=== PATIENT | female | born 2000 | race Caucasian/White ===

== ENCOUNTER 2021-06-14 16:30 | Emergency (ER) | payer SELFPAY ==
[~2021-06-14] VITALS: Ht 154.9 cm; Wt 50.0 kg
[2021-06-14 16:31] VITALS: BP 98/67
== END 2021-06-15 00:03 | disposition left against medical advice (07) ==
LOC: M ED 16:30
DX: Z53.21 Procedure and treatment not carried out due to patient leaving prior to being seen by health care provider (principal)

== ENCOUNTER → 2021-07-23 | Outpatient (REF) | payer OTHER ==
[~2021-07-23] MED LIST: MACR100C43 PO
[2021-07-23 18:29] LABS: HEMATOCRIT 36.3 % (36.0-47.0); HEMOGLOBIN 12.1 g/dl (12.0-15.5); MEAN CORPUSCULAR HEMOGLOBIN 30.1 pg (27.0-33.0); MEAN CORPUSCULAR HGB CONC 33.3 g/dl (32.0-36.5); MEAN CORPUSCULAR VOLUME 90.3 fl (80.0-96.0); PLATELET COUNT, AUTOMATED 313 10^3/uL (150-450); RED BLOOD COUNT 4.02 10^6/uL (4.00-5.40); WHITE BLOOD COUNT 10.8 10^3/uL (4.0-10.0)
[2021-07-23 19:50] LABS: HCG, SERUM QUANTITATIVE 40368 MIU/ML; HEPATITIS B SURFACE ANTIGEN NEGATIVE (NEGATIVE); HEPATITIS C VIRUS ABY INDEX < 0.0 INDEX (<0.8); HIV 1&2 SCREEN CENTAUR NEGATIVE (NEGATIVE)
== END ==
LOC: M LAB REF 17:39
PROVIDERS: ATTEND Obstetrics & Gynecology
DX: Z32.01 Encounter for pregnancy test, result positive (principal); O36.80X0 Pregnancy with inconclusive fetal viability, not applicable or unspecified; Z3A.00 Weeks of gestation of pregnancy not specified

== ENCOUNTER 2021-10-10 19:06 | Outpatient (CLI) | payer OTHER ==
[~2021-10-10] VITALS: Ht 152.4 cm; Wt 57.0 kg
[2021-10-10 19:46] VITALS: BP 103/60
[2021-10-10 20:41] LABS: AMORPHOUS SEDIMENT SMALL (NEGATIVE); APPEARANCE, URINE CLOUDY (CLEAR); BACTERIA, URINE AUTO NEGATIVE (NEGATIVE); BILIRUBIN, URINE AUTO NEGATIVE (NEGATIVE); BLOOD, URINE BLOOD NEGATIVE (NEGATIVE); COLOR, URINE YELLOW (YELLOW); GLUCOSE, URINE (UA) AUTO NEGATIVE (NEGATIVE); KETONE, URINE AUTO NEGATIVE (NEGATIVE); LEUKOCYTE ESTERASE, URINE AUTO 2+ (NEGATIVE); NITRITE, URINE AUTO NEGATIVE (NEGATIVE); PROTEIN, URINE AUTO NEGATIVE (NEGATIVE); RBC, URINE AUTO 3 /HPF (0-3); SQUAMOUS EPITHELIAL CELL UR AU 14 /HPF (0-6); WBC, URINE AUTO 53 /HPF (0-3)
--- NOTE | 2021-10-10 20:51 | IPNPDOC ---
Text Note Date of Service The patient was seen on 10/10/21. NOTE S: 21 yo at 23 5/7 weeks gestation presents with cramping, and urinary urgency. She has had multiple UTI's in the past. She feels this is a UTI. Pt of [facility]. She had contractions with her first due to UTI. O: AVSS NAD Abd: NT, gravid, soft FHT: + toco: none ext: NT UA: 53 WBC A/P 21 yo at 23 5/7 weeks with cramping, urgency, possible UTI Start Macrobid Send urine for culture discharge home [facility] VS,Fishbone, I+O VS, Fishbone, I+O Vital Signs Date Time Temp Pulse Resp B/P (MAP) Pulse Ox O2 Delivery O2 Flow Rate FiO2 10/10/21 19:46 98.6 78 18 103/60 (74) DOMENICO HODGSON MD Oct 10, 2021 20:51
[2021-10-10] MEDS ORDERED: NITROFURANTOIN (MACROBID) 100 MG CAP PO ONE (21:00)
[2021-10-10] MEDS ORDERED: MACR100C43 PO (21:01)
== END 2021-10-10 21:12 | disposition home or self-care (01) ==
LOC: M LDO 19:06
PROVIDERS: ATTEND Specialist
DX: O26.892 Other specified pregnancy related conditions, second trimester (principal); R25.2 Cramp and spasm; Z3A.23 23 weeks gestation of pregnancy
CPT/HCPCS: 59025; 81001; 87086; G0378; G0463

== ENCOUNTER → 2021-11-06 | Outpatient (CLI) | payer OTHER | LOC: M LAB 11:10 | PROVIDERS: ATTEND Advanced Practice Midwife | DX: Z34.82 Encounter for supervision of other normal pregnancy, second trimester (principal); Z3A.00 Weeks of gestation of pregnancy not specified ==

== ENCOUNTER → 2022-01-09 | Outpatient (REF) | payer OTHER | LOC: M LAB REF 12:02 | PROVIDERS: ATTEND Obstetrics & Gynecology | DX: Z34.83 Encounter for supervision of other normal pregnancy, third trimester (principal); Z3A.00 Weeks of gestation of pregnancy not specified ==

== ENCOUNTER 2022-01-21 13:46 | Outpatient (CLI) | payer OTHER ==
[~2022-01-21] VITALS: Ht 154.9 cm; Wt 61.9 kg
[2022-01-21] MEDS ORDERED: TUMS750C5 PO (14:13)
[2022-01-21 14:16] VITALS: BP 98/60
[2022-01-21 14:50] VITALS: BP 102/57
[2022-01-21 16:04] VITALS: BP 104/64
== END 2022-01-21 16:10 | disposition home or self-care (01) ==
LOC: M LDO 13:46
PROVIDERS: ATTEND Obstetrics & Gynecology
DX: O26.853 Spotting complicating pregnancy, third trimester (principal); O60.03 Preterm labor without delivery, third trimester; Z3A.38 38 weeks gestation of pregnancy
CPT/HCPCS: 59025; G0378; G0463

== ENCOUNTER → 2022-11-06 | Outpatient (REF) | payer OTHER ==
[~2022-11-06] MED LIST changes: +TUMS750C5 PO
== END ==
LOC: M LAB REF 21:33
PROVIDERS: ATTEND Physician Assistant
DX: J06.9 Acute upper respiratory infection, unspecified (principal); Z20.828 Contact with and (suspected) exposure to other viral communicable diseases

== ENCOUNTER 2022-12-21 02:21 | Emergency (ER) | payer OTHER ==
[~2022-12-21] VITALS: Ht 154.9 cm; Wt 51.4 kg
[2022-12-21 02:22] VITALS: BP 114/77
[2022-12-21] MEDS ORDERED: ONDA4TAB6 PO (20:29)
== END 2022-12-21 03:57 | disposition left against medical advice (07) ==
LOC: M ED 02:21
DX: Z53.21 Procedure and treatment not carried out due to patient leaving prior to being seen by health care provider (principal)

== ENCOUNTER 2022-12-21 14:16 | Emergency (ER) | payer OTHER ==
[~2022-12-21] VITALS: Ht 154.9 cm; Wt 50.0 kg
[2022-12-21] MEDS ORDERED: NS 1,000 ML IV ONE ×2 (14:45→15:05)
[2022-12-21] MEDS ORDERED: MORPHINE 2 MG/ML 1ML VIAL IV ONE ×2 (14:45→19:20)
[2022-12-21] MEDS ORDERED: PROMETHAZINE 25MG/ML 1ML VIAL IV ONE (14:45)
[2022-12-21 15:11] LABS: BASO % 0.3 % (0.0-1.0); HEMATOCRIT 41.6 % (36.0-47.0); HEMOGLOBIN 14.2 g/dl (12.0-15.5); LYMPH # 1.7 10^3/uL (1.5-5.0); LYMPH % 11.3 % (24.0-44.0); MEAN CORPUSCULAR HEMOGLOBIN 29.3 pg (27.0-33.0); MEAN CORPUSCULAR HGB CONC 34.1 g/dl (32.0-36.5); MONO % 12.7 % (2.0-8.0); NEUTROPHILS % 75.2 % (36.0-66.0); PLATELET COUNT, AUTOMATED 329 10^3/uL (150-450); RED BLOOD COUNT 4.84 10^6/uL (4.00-5.40); WHITE BLOOD COUNT 14.7 10^3/uL (4.0-10.0)
[2022-12-21] MEDS ORDERED: GI COCKTAIL 50ML BTL(HYOSCYAMINE/MAALOX/LIDOCAINE VISCOUS)(1:3:1) PO ONE (15:20)
[2022-12-21 15:31] LABS: LIPASE 26 U/L (12-53)
[2022-12-21 15:32] LABS: MONO # 1.9 10^3/uL (0.0-0.8)
[2022-12-21 15:33] LABS: ALBUMIN 4.7 G/DL (3.2-5.2); ALKALINE PHOSPHATASE 96 U/L (46-116); ALT/SGPT 19 U/L (7.0-40); AST/SGOT 20 U/L (<34); BILIRUBIN,DIRECT 0.2 MG/DL (<0.4); BILIRUBIN,TOTAL 0.6 MG/DL (0.3-1.2); TOTAL PROTEIN 8.5 G/DL (5.7-8.2)
[2022-12-21 15:57] LABS: RSV AMPLIFICATION NEGATIVE (NEGATIVE)
[2022-12-21] MEDS ORDERED: KETOROLAC 30 MG/ML 1ML VIAL IV ONE (16:30)
[2022-12-21 16:34] LABS: BLOOD UREA NITROGEN 18 MG/DL (9-23); CALCIUM LEVEL 9.8 MG/DL (8.5-10.1); CARBON DIOXIDE LEVEL 14 MMOL/L (20-31); CHLORIDE LEVEL 101 MMOL/L (98-107); CREATININE FOR GFR 0.74 MG/DL (0.55-1.30); GLOMERULAR FILTRATION RATE > 60.0 (>60); GLUCOSE, FASTING 88 MG/DL (60-100); SODIUM LEVEL 136 MMOL/L (136-145)
[2022-12-21] MEDS ORDERED: ISOVUE-370 76% 100ML VIAL As Ordered ONE (17:01)
[2022-12-21] MEDS ORDERED: ONDANSETRON 4MG ORAL DISINTEGRATING TAB PO ONE ×3 (19:10→20:35)
[2022-12-21] MEDS ORDERED: NS 1,000 ML IV SCH (19:20)
[2022-12-21] MEDS ORDERED: HOME MED LIST COMPLETE! XX SCH (19:55)
[2022-12-21] MEDS ORDERED: ONDA4TAB6 PO (20:29)
[2022-12-21 20:32] VITALS: BP 97/58
== END 2022-12-21 20:46 | disposition home or self-care (01) ==
LOC: M ED 14:16
DX: R10.9 Unspecified abdominal pain (principal); R11.2 Nausea with vomiting, unspecified; Z88.0 Allergy status to penicillin; Z79.810 Long term (current) use of selective estrogen receptor modulators (SERMs); Z79.899 Other long term (current) drug therapy
CPT/HCPCS: 74177; 76705; 80047; 80048; 80076; 81000; 81015; 83690; 84702; 85025; 87631; 93041; 96361; 96374; 96375; 99284; J1885; J2270; J2550

== ENCOUNTER 2022-12-23 03:12 | Emergency (ER) | payer OTHER ==
[~2022-12-23] VITALS: Ht 154.9 cm; Wt 50.0 kg
[~2022-12-23 03:12] MED LIST changes: +ONDA4TAB6 PO
[2022-12-23 04:54] LABS: HEMATOCRIT 36.9 % (36.0-47.0); HEMOGLOBIN 12.5 g/dl (12.0-15.5); MEAN CORPUSCULAR HEMOGLOBIN 29.2 pg (27.0-33.0); MEAN CORPUSCULAR HGB CONC 33.9 g/dl (32.0-36.5); MEAN CORPUSCULAR VOLUME 86.2 fl (80.0-96.0); PLATELET COUNT, AUTOMATED 337 10^3/uL (150-450); RED BLOOD COUNT 4.28 10^6/uL (4.00-5.40)
[2022-12-23 05:06] LABS: HCG, SERUM QUALITATIVE NEGATIVE (NEGATIVE)
[2022-12-23 05:09] LABS: ALBUMIN 3.9 G/DL (3.2-5.2); ALKALINE PHOSPHATASE 81 U/L (46-116); ALT/SGPT 19 U/L (7.0-40); AST/SGOT 17 U/L (<34); BILIRUBIN,DIRECT 0.3 MG/DL (<0.4); BILIRUBIN,TOTAL 0.6 MG/DL (0.3-1.2); BLOOD UREA NITROGEN 12 MG/DL (9-23); CALCIUM LEVEL 9.2 MG/DL (8.5-10.1); CARBON DIOXIDE LEVEL 18 MMOL/L (20-31); CHLORIDE LEVEL 103 MMOL/L (98-107); CREATININE FOR GFR 0.59 MG/DL (0.55-1.30); GLOMERULAR FILTRATION RATE > 60.0 (>60); GLUCOSE, FASTING 86 MG/DL (60-100); POTASSIUM SERUM 3.7 MMOL/L (3.5-5.1); SODIUM LEVEL 137 MMOL/L (136-145); TOTAL PROTEIN 7.9 G/DL (5.7-8.2)
[2022-12-23 05:31] LABS: ATYPICAL LYMPH 8 % (0-5); BASOPHILS 1 % (0-1); EOSINOPHILS 2 % (0-3); LYMPHOCYTES 25 % (16-44); MONOCYTES 9 % (0-5); MYELOCYTES 1 % (0-0); NEUTROPHILS 54 % (28-66); PLATELET ESTIMATE NORMAL (NORMAL)
[2022-12-23] MEDS ORDERED: KETOROLAC 60MG 2ML VIAL IM ONE (06:15)
[2022-12-23] MEDS ORDERED: ONDANSETRON 4MG TAB PO ONE (06:15)
[2022-12-23] MEDS ORDERED: ALPRAZolam 0.5 MG TAB PO ONE (06:15)
[2022-12-23] MEDS ORDERED: PRIL20TA2 PO (07:17)
[2022-12-23 08:01] VITALS: BP 121/71
== END 2022-12-23 08:21 | disposition home or self-care (01) ==
LOC: M ED 03:12
DX: R10.9 Unspecified abdominal pain (principal); R11.2 Nausea with vomiting, unspecified; F41.9 Anxiety disorder, unspecified; D64.9 Anemia, unspecified; Z88.0 Allergy status to penicillin; Z79.899 Other long term (current) drug therapy
CPT/HCPCS: 36415; 80048; 80076; 83605; 84703; 85025; 96372; 99283; J1885

== ENCOUNTER → 2022-12-25 | Outpatient (REF) | payer OTHER ==
[~2022-12-25] MED LIST changes: +PRIL20TA2 PO
[2022-12-25 17:35] LABS: HEMATOCRIT 36.3 % (36.0-47.0); HEMOGLOBIN 12.3 g/dl (12.0-15.5); MEAN CORPUSCULAR HEMOGLOBIN 29.2 pg (27.0-33.0); MEAN CORPUSCULAR HGB CONC 33.9 g/dl (32.0-36.5); MEAN CORPUSCULAR VOLUME 86.2 fl (80.0-96.0); PLATELET COUNT, AUTOMATED 408 10^3/uL (150-450); RED BLOOD COUNT 4.21 10^6/uL (4.00-5.40); WHITE BLOOD COUNT 7.2 10^3/uL (4.0-10.0)
[2022-12-25 18:34] LABS: ATYPICAL LYMPH 8 % (0-5); BASOPHILS 2 % (0-1); EOSINOPHILS 2 % (0-3); LYMPHOCYTES 30 % (16-44); MONOCYTES 6 % (0-5); NEUTROPHILS 52 % (28-66); PLATELET ESTIMATE NORMAL (NORMAL)
== END ==
LOC: M LAB REF 16:54
PROVIDERS: ATTEND Nurse Practitioner Family
DX: R10.9 Unspecified abdominal pain (principal); R63.6 Underweight

== ENCOUNTER → 2023-01-13 | Outpatient (CLI) | payer OTHER | LOC: M RAD 14:11 | PROVIDERS: ATTEND Nurse Practitioner Family | DX: E07.9 Disorder of thyroid, unspecified (principal) ==

== ENCOUNTER → 2023-01-23 | Outpatient (REF) | payer OTHER ==
[2023-01-23 18:37] LABS: BASO # 0.1 10^3/uL (0.0-0.2); BASO % 0.7 % (0.0-1.0); EOS # 0.2 10^3/uL (0.0-0.5); EOS % 2.5 % (0.0-3.0); HEMOGLOBIN 12.6 g/dl (12.0-15.5); LYMPH % 27.8 % (24.0-44.0); MEAN CORPUSCULAR HGB CONC 32.3 g/dl (32.0-36.5); MEAN CORPUSCULAR VOLUME 89.9 fl (80.0-96.0); MONO # 0.8 10^3/uL (0.0-0.8); MONO % 11.2 % (2.0-8.0); NEUTROPHILS # 4.1 10^3/uL (1.5-8.5); NEUTROPHILS % 57.4 % (36.0-66.0); PLATELET COUNT, AUTOMATED 287 10^3/uL (150-450); RED BLOOD COUNT 4.34 10^6/uL (4.00-5.40); WHITE BLOOD COUNT 7.2 10^3/uL (4.0-10.0)
== END ==
LOC: M LAB REF 17:19
PROVIDERS: ATTEND Nurse Practitioner Family
DX: R89.9 Unspecified abnormal finding in specimens from other organs, systems and tissues (principal)

== ENCOUNTER 2023-07-28 15:55 | Emergency (ER) | payer OTHER ==
[~2023-07-28] VITALS: Ht 152.4 cm; Wt 46.3 kg
[2023-07-28 15:56] VITALS: TEMP 99.6; O2SAT 99
[2023-07-28 18:49] VITALS: BP 99/65
[2023-07-28 18:49] LABS: BASO # 0.1 10^3/uL (0.0-0.2); BASO % 0.6 % (0.0-1.0); EOS # 0.3 10^3/uL (0.0-0.5); EOS % 2.9 % (0.0-3.0); HEMATOCRIT 37.5 % (36.0-47.0); HEMOGLOBIN 12.8 g/dl (12.0-15.5); LYMPH # 3.5 10^3/uL (1.5-5.0); LYMPH % 33.6 % (24.0-44.0); MEAN CORPUSCULAR HEMOGLOBIN 30.3 pg (27.0-33.0); MEAN CORPUSCULAR HGB CONC 34.1 g/dl (32.0-36.5); MEAN CORPUSCULAR VOLUME 88.7 fl (80.0-96.0); MONO # 1.2 10^3/uL (0.0-0.8); MONO % 10.9 % (2.0-8.0); NEUTROPHILS # 5.5 10^3/uL (1.5-8.5); NEUTROPHILS % 51.8 % (36.0-66.0); PLATELET COUNT, AUTOMATED 366 10^3/uL (150-450); RED BLOOD COUNT 4.23 10^6/uL (4.00-5.40); WHITE BLOOD COUNT 10.5 10^3/uL (4.0-10.0)
[2023-07-28 18:50] LABS: APPEARANCE, URINE HAZY (CLEAR); BACTERIA, URINE AUTO 2+ (NEGATIVE); BILIRUBIN, URINE AUTO NEGATIVE (NEGATIVE); BLOOD, URINE BLOOD 2+ (NEGATIVE); COLOR, URINE YELLOW (YELLOW); GLUCOSE, URINE (UA) AUTO NEGATIVE (NEGATIVE); KETONE, URINE AUTO NEGATIVE (NEGATIVE); LEUKOCYTE ESTERASE, URINE AUTO 2+ (NEGATIVE); MUCUS, URINE SMALL (NEGATIVE); NITRITE, URINE AUTO POSITIVE (NEGATIVE); PROTEIN, URINE AUTO 1+ mg/dL (NEGATIVE); RBC, URINE AUTO 2 /HPF (0-3); SPECIFIC GRAVITY URINE AUTO 1.028 (1.002-1.035); SQUAMOUS EPITHELIAL CELL UR AU 4 /HPF (0-6); UROBILINOGEN, URINE AUTO 0.2 mg/dL (0.0-2.0); WBC, URINE AUTO 16 /HPF (0-3)
[2023-07-28 19:19] LABS: ALBUMIN 4.3 G/DL (3.2-5.2); ALKALINE PHOSPHATASE 79 U/L (46-116); ALT/SGPT 14 U/L (7.0-40); AST/SGOT < 8 U/L (<34); BILIRUBIN,TOTAL 0.4 MG/DL (0.3-1.2); BLOOD UREA NITROGEN 13 MG/DL (9-23); CALCIUM LEVEL 8.5 MG/DL (8.5-10.1); CARBON DIOXIDE LEVEL 22 MMOL/L (20-31); CHLORIDE LEVEL 108 MMOL/L (98-107); CREATININE FOR GFR 0.69 MG/DL (0.55-1.30); GLOMERULAR FILTRATION RATE > 60.0 (>60); GLUCOSE, FASTING 83 MG/DL (60-100); POTASSIUM SERUM 4.5 MMOL/L (3.5-5.1); SODIUM LEVEL 138 MMOL/L (136-145); TOTAL PROTEIN 7.7 G/DL (5.7-8.2)
[2023-07-28 19:21] LABS: FREE T4 1.04 NG/DL (0.89-1.76); THYROID STIMULATING HORMONE 2.001 uIU/ML (0.55-4.78)
[2023-07-28 19:28] LABS: HCG, SERUM QUALITATIVE NEGATIVE (NEGATIVE)
[2023-07-28] MEDS ORDERED: MACR100C43 PO (20:15)
== END 2023-07-28 20:35 | disposition home or self-care (01) ==
LOC: M ED 15:55
DX: N63.10 Unspecified lump in the right breast, unspecified quadrant (principal); N39.0 Urinary tract infection, site not specified; R63.4 Abnormal weight loss; I95.1 Orthostatic hypotension; Z88.0 Allergy status to penicillin; Z79.899 Other long term (current) drug therapy

== ENCOUNTER → 2023-11-06 | Outpatient (REF) | payer OTHER ==
[2023-11-06 17:48] LABS: BASO % 0.6 % (0.0-1.0); EOS # 0.1 10^3/uL (0.0-0.5); EOS % 1.5 % (0.0-3.0); HEMATOCRIT 33.7 % (36.0-47.0); HEMOGLOBIN 11.1 g/dl (12.0-15.5); LYMPH # 3.1 10^3/uL (1.5-5.0); LYMPH % 42.6 % (24.0-44.0); MEAN CORPUSCULAR HEMOGLOBIN 29.4 pg (27.0-33.0); MEAN CORPUSCULAR HGB CONC 32.9 g/dl (32.0-36.5); MEAN CORPUSCULAR VOLUME 89.4 fl (80.0-96.0); MONO # 0.5 10^3/uL (0.0-0.8); MONO % 6.3 % (2.0-8.0); NEUTROPHILS # 3.5 10^3/uL (1.5-8.5); NEUTROPHILS % 48.7 % (36.0-66.0); PLATELET COUNT, AUTOMATED 326 10^3/uL (150-450); RED BLOOD COUNT 3.77 10^6/uL (4.00-5.40); WHITE BLOOD COUNT 7.2 10^3/uL (4.0-10.0)
[2023-11-06 18:09] LABS: FERRITIN 32.8 NG/ML (7.3-270.7); PERCENT SATURATION 22.1 % (13.2-45.0)
[2023-11-06 18:10] LABS: FOLATE 13.53 NG/ML (>5.4); THYROID STIMULATING HORMONE 2.137 uIU/ML (0.55-4.78); TOTAL 25(OH) VITAMIN D 5.6 NG/ML (20.0-100.0)
[2023-11-06 18:31] LABS: HEMOGLOBIN A1c 4.8 % (4.0-6.0)
== END ==
LOC: M LAB REF 16:35
PROVIDERS: ATTEND Nurse Practitioner Family
DX: R53.83 Other fatigue (principal); N92.0 Excessive and frequent menstruation with regular cycle; E55.9 Vitamin D deficiency, unspecified